=== PATIENT | female | born 1940 | race Caucasian/White ===

== ENCOUNTER 2018-03-17 16:35 | Inpatient (IN) | payer MEDICARE, OTHER ==
[2018-03-17] MEDS: CEFTRIAXONE 1 GM/50 ML (PMX) 50 ML IVPB (19:15)
[2018-03-17] MEDS: SODIUM CHLORIDE 0.9% 1L BAG IV* (19:15)
[2018-03-17 19:27] LABS: ADD MAN DIFF? NO
[2018-03-17 19:28] LABS: BASOPHILS % 0.4 % (0.0-2.0); EOSINOPHILS % 0.1 % (0.0-7.0); HEMATOCRIT 36.2 % (37.0-47.0); HEMOGLOBIN 12.4 g/dl (12.0-16.0); LYMPHOCYTES # 1.7 10^3/ul (0.8-2.9); MEAN CORPUSCULAR HEMOGLOBIN 31.9 pg (29.0-33.0); MEAN CORPUSCULAR HGB CONC 34.3 g/dl (32.0-37.0); MEAN CORPUSCULAR VOLUME 93.1 fl (82.0-101.0); MONOCYTES % 10.4 % (0.0-11.0); NEUTROPHIL # 7.2 10^3/ul (1.6-7.5); NEUTROPHILS % 71.8 % (39.0-77.0); PLATELET COUNT 206 10^3/UL (140-415); RED BLOOD COUNT 3.89 10^6/ul (4.20-5.40); RED CELL DISTRIBUTION WIDTH 12.4 % (11.5-14.5)
[2018-03-17 19:47] LABS: INR 1.09; PROTIME 14.2 Sec (11.9-14.9); PT RATIO 1.1
[2018-03-17 19:48] LABS: PARTIAL THROMBOPLASTIN TIME 33.4 Sec (25.0-35.0)
[2018-03-17 19:50] LABS: ADD UMIC YES; ALANINE AMINOTRANSFERASE 54 IU/L (13-69); ALBUMIN 4.3 g/dl (3.3-4.9); ALBUMIN/GLOBULIN RATIO 1.19; ALKALINE PHOSPHATASE 59 IU/L (42-121); ANION GAP 20 (8-16); ASPARTATE AMINO TRANSFERASE 25 IU/L (15-46); BILIRUBIN,INDIRECT 0.3 mg/dl (0-1.1); BILIRUBIN,TOTAL 0.3 mg/dl (0.2-1.3); BLOOD UREA NITROGEN 15 mg/dl (7-20); CALCIUM 9.4 mg/dl (8.4-10.2); CARBON DIOXIDE 26 mmol/L (21-31); CHLORIDE 98 mmol/L (97-110); CREATININE 0.65 mg/dl (0.44-1.00); GLUCOSE 311 mg/dl (70-220); LIPASE 41 U/L (23-300); POTASSIUM 4.2 mmol/L (3.5-5.1); SODIUM 140 mmol/L (135-144); TOTAL PROTEIN 7.9 g/dl (6.1-8.1); UR ASCORBIC ACID NEGATIVE (NEGATIVE); UR BACTERIA FEW /HPF (NONE SEEN); UR BILIRUBIN (Dip) NEGATIVE (NEGATIVE); UR BLOOD (Dip) 1+ mg/dL (NEGATIVE); UR CLARITY SLIGHTLY CLOUDY (CLEAR); UR COLOR YELLOW (YELLOW); UR GLUCOSE (Dip) 3+ mg/dL (NEGATIVE); UR KETONES (Dip) TRACE mg/dL (NEGATIVE); UR LEUKOCYTE ESTERASE (Dip) 2+ Leu/ul (NEGATIVE); UR MUCUS FEW /HPF (NONE SEEN); UR NITRITE (Dip) NEGATIVE (NEGATIVE); UR RBC 14 /HPF (0-5); UR SPECIFIC GRAVITY (Dip) 1.035 (1.003-1.030); UR SQUAMOUS EPITHELIAL CELL MODERATE /HPF (FEW); UR TOTAL PROTEIN (Dip) 2+ mg/dl (NEGATIVE); UR UROBILINOGEN (Dip) 2+ mg/dL (NEGATIVE); UR WBC 58 /HPF (0-5)
[2018-03-17 19:50] LABS: LACTIC ACID 2.2 mmol/L (0.5-2.0)
[2018-03-17 20:07] LABS: TROPONIN-I < 0.012 ng/ml (0.00-0.12)
[2018-03-17] MEDS ORDERED: NACL 0.9% 3 ML SYG IV (20:30)
[2018-03-17] MEDS ORDERED: GLUCOSE GEL 15 GRAM TUBE BUCCAL (21:00)
[2018-03-17] MEDS ORDERED: GLUCOSE GEL 15 GRAM TUBE PO ×2 (21:00)
[2018-03-17] MEDS ORDERED: DEXTROSE 50% 50 ML SYRINGE IV ×2 (21:00)
[2018-03-17] MEDS ORDERED: GLUCAGON 1 MG INJ IM (21:00)
[2018-03-17 21:31] LABS: LACTIC ACID 1.4 mmol/L (0.5-2.0)
[2018-03-17] MEDS: SOD CHLORIDE 0.9% 1,000 ML IV (21:38)
[2018-03-17] MEDS: ATORVASTATIN 10 MG TAB PO (21:44)
[2018-03-17] MEDS: PANTOPRAZOLE (EC) 40 MG TAB PO (21:45)
[2018-03-17] MEDS: INSULIN ASPART [NOVOLOG] 3 ML PEN SC (22:37)
[2018-03-17] MEDS ORDERED: MECLIZINE 25 MG TAB PO (23:00)
[2018-03-17] MEDS: VALSARTAN 80 MG TAB PO (23:46)
[2018-03-17] MEDS: ONDANSETRON 4 MG INJ IV (23:48)
[2018-03-18 00:42] LABS: LACTIC ACID 1.7 mmol/L (0.5-2.0)
[2018-03-18] MEDS: ACETAMINOPHEN 325 MG TAB PO ×3 (01:57→20:53)
[2018-03-18] MEDS: ACCU-CHEK XX (01:57)
[2018-03-18] MEDS: SOD CHLORIDE 0.9% 1,000 ML IV (03:44)
[2018-03-18] MEDS: PANTOPRAZOLE (EC) 40 MG TAB PO (05:27)
[2018-03-18 05:51] LABS: ADD MAN DIFF? NO
[2018-03-18 05:57] LABS: WHITE BLOOD COUNT 9.1 10^3/ul (4.8-10.8)
[2018-03-18 05:57] LABS: BASOPHILS % 0.3 % (0.0-2.0); EOSINOPHILS % 0.1 % (0.0-7.0); HEMATOCRIT 32.4 % (37.0-47.0); HEMOGLOBIN 10.9 g/dl (12.0-16.0); LYMPHOCYTES # 2.1 10^3/ul (0.8-2.9); LYMPHOCYTES % 23.2 % (15.0-51.0); MEAN CORPUSCULAR HEMOGLOBIN 31.3 pg (29.0-33.0); MEAN CORPUSCULAR HGB CONC 33.6 g/dl (32.0-37.0); MEAN CORPUSCULAR VOLUME 93.1 fl (82.0-101.0); MONOCYTE # 1.1 10^3/ul (0.3-0.9); MONOCYTES % 11.6 % (0.0-11.0); NEUTROPHIL # 5.9 10^3/ul (1.6-7.5); NEUTROPHILS % 64.6 % (39.0-77.0); PLATELET COUNT 190 10^3/UL (140-415); RED BLOOD COUNT 3.48 10^6/ul (4.20-5.40); RED CELL DISTRIBUTION WIDTH 12.5 % (11.5-14.5)
[2018-03-18 06:20] LABS: ALANINE AMINOTRANSFERASE 46 IU/L (13-69); ALBUMIN 3.2 g/dl (3.3-4.9); ALBUMIN/GLOBULIN RATIO 1.06; ALKALINE PHOSPHATASE 45 IU/L (42-121); ANION GAP 11 (8-16); ASPARTATE AMINO TRANSFERASE 22 IU/L (15-46); BILIRUBIN,INDIRECT 0.2 mg/dl (0-1.1); BILIRUBIN,TOTAL 0.2 mg/dl (0.2-1.3); BLOOD UREA NITROGEN 9 mg/dl (7-20); CALCIUM 8.2 mg/dl (8.4-10.2); CARBON DIOXIDE 27 mmol/L (21-31); CHLORIDE 107 mmol/L (97-110); CHOL/HDL RATIO 4.5 RATIO; CHOLESTEROL 117 mg/dl (100-200); CREATININE 0.61 mg/dl (0.44-1.00); GLUCOSE 237 mg/dl (70-220); HDL CHOLESTEROL 26 mg/dl (33-92); LDL CHOLESTEROL,CALCULATED 64 mg/dl; MAGNESIUM 1.8 mg/dl (1.7-2.5); POTASSIUM 4.2 mmol/L (3.5-5.1); SODIUM 141 mmol/L (135-144); TOTAL PROTEIN 6.2 g/dl (6.1-8.1); TRIGLYCERIDES 134 mg/dl (0-149)
[2018-03-18 06:46] LABS: THYROID STIMULATING HORMONE 0.484 MIU/L (0.465-4.680)
[2018-03-18] MEDS: INSULIN ASPART [NOVOLOG] 3 ML PEN SC ×4 (08:19→20:56)
[2018-03-18] MEDS: PREGABALIN 75 MG CAP PO (09:03)
[2018-03-18] MEDS: TOLTERODINE (SR) 4 MG CAP PO (09:03)
[2018-03-18] MEDS: ASPIRIN (EC) 81 MG TAB PO (09:03)
[2018-03-18] MEDS: METOPROLOL (XL) 25 MG TAB PO (09:04)
[2018-03-18] MEDS: VALSARTAN 80 MG TAB PO (09:05)
[2018-03-18] MEDS: CEFTRIAXONE 1 GM/50 ML (PMX) 50 ML IVPB (19:54)
[2018-03-18] MEDS: ATORVASTATIN 10 MG TAB PO (20:53)
[2018-03-19] MEDS: ACCU-CHEK XX (02:17)
[2018-03-19] MEDS: PANTOPRAZOLE (EC) 40 MG TAB PO (05:50)
[2018-03-19] MEDS: ACETAMINOPHEN 325 MG TAB PO ×2 (05:50→12:13)
[2018-03-19] MEDS: INSULIN ASPART [NOVOLOG] 3 ML PEN SC ×4 (07:54→21:00)
[2018-03-19] MEDS: VALSARTAN 80 MG TAB PO (08:42)
[2018-03-19] MEDS: ASPIRIN (EC) 81 MG TAB PO (08:42)
[2018-03-19] MEDS: TOLTERODINE (SR) 4 MG CAP PO (08:43)
[2018-03-19] MEDS: PREGABALIN 75 MG CAP PO (08:43)
[2018-03-19] MEDS: METOPROLOL (XL) 25 MG TAB PO (08:45)
[2018-03-19 19:13] LABS: ADD UMIC YES; UR ASCORBIC ACID NEGATIVE (NEGATIVE); UR BACTERIA FEW /HPF (NONE SEEN); UR BILIRUBIN (Dip) NEGATIVE (NEGATIVE); UR BLOOD (Dip) 2+ mg/dL (NEGATIVE); UR CLARITY CLEAR (CLEAR); UR COLOR YELLOW (YELLOW); UR GLUCOSE (Dip) 1+ mg/dL (NEGATIVE); UR KETONES (Dip) TRACE mg/dL (NEGATIVE); UR LEUKOCYTE ESTERASE (Dip) 1+ Leu/ul (NEGATIVE); UR MUCUS FEW /HPF (NONE SEEN); UR NITRITE (Dip) NEGATIVE (NEGATIVE); UR RBC 12 /HPF (0-5); UR SPECIFIC GRAVITY (Dip) 1.014 (1.003-1.030); UR SQUAMOUS EPITHELIAL CELL FEW /HPF (FEW); UR TOTAL PROTEIN (Dip) 1+ mg/dl (NEGATIVE); UR UROBILINOGEN (Dip) 1+ mg/dL (NEGATIVE); UR WBC 52 /HPF (0-5)
[2018-03-19] MEDS: ATORVASTATIN 10 MG TAB PO (21:52)
[2018-03-20] MEDS: ACCU-CHEK XX (01:51)
[2018-03-20] MEDS: PANTOPRAZOLE (EC) 40 MG TAB PO (05:24)
[2018-03-20 06:32] LABS: ADD MAN DIFF? NO
[2018-03-20 06:38] LABS: BASOPHILS % 0.4 % (0.0-2.0); EOSINOPHILS # 0.1 10^3/ul (0.0-0.5); EOSINOPHILS % 0.6 % (0.0-7.0); HEMATOCRIT 36.6 % (37.0-47.0); HEMOGLOBIN 12.1 g/dl (12.0-16.0); LYMPHOCYTES # 1.9 10^3/ul (0.8-2.9); LYMPHOCYTES % 18.8 % (15.0-51.0); MEAN CORPUSCULAR HGB CONC 33.1 g/dl (32.0-37.0); MEAN CORPUSCULAR VOLUME 93.8 fl (82.0-101.0); MEAN PLATELET VOLUME 9.9 fl (7.4-10.4); MONOCYTE # 1.2 10^3/ul (0.3-0.9); MONOCYTES % 11.2 % (0.0-11.0); NEUTROPHILS % 68.5 % (39.0-77.0); PLATELET COUNT 242 10^3/UL (140-415); RED CELL DISTRIBUTION WIDTH 12.5 % (11.5-14.5)
[2018-03-20 06:38] LABS: WHITE BLOOD COUNT 10.2 10^3/ul (4.8-10.8)
[2018-03-20 07:06] LABS: ANION GAP 14 (8-16); BLOOD UREA NITROGEN 12 mg/dl (7-20); CALCIUM 8.9 mg/dl (8.4-10.2); CARBON DIOXIDE 29 mmol/L (21-31); CHLORIDE 104 mmol/L (97-110); CREATININE 0.67 mg/dl (0.44-1.00); GLUCOSE 171 mg/dl (70-220); MAGNESIUM 2.1 mg/dl (1.7-2.5); PHOSPHORUS 3.1 mg/dl (2.5-4.9); POTASSIUM 4.3 mmol/L (3.5-5.1); SODIUM 143 mmol/L (135-144)
[2018-03-20] MEDS: TOLTERODINE (SR) 4 MG CAP PO (08:11)
[2018-03-20] MEDS: PREGABALIN 75 MG CAP PO (08:11)
[2018-03-20] MEDS: INSULIN ASPART [NOVOLOG] 3 ML PEN SC ×2 (08:11→12:00)
[2018-03-20] MEDS: VALSARTAN 80 MG TAB PO (08:12)
[2018-03-20] MEDS: METOPROLOL (XL) 25 MG TAB PO (08:12)
[2018-03-20] MEDS: ASPIRIN (EC) 81 MG TAB PO (08:12)
[2018-03-20] MEDS: ACETAMINOPHEN 325 MG TAB PO (10:11)
== END 2018-03-20 17:05 | disposition home or self-care (01) | DRG 864 ==
LOC: E/R 16:35 → MS2 20:01
DX: R50.9 Fever, unspecified (principal); R31.9 Hematuria, unspecified; E11.9 Type 2 diabetes mellitus without complications; I10 Essential (primary) hypertension; E03.9 Hypothyroidism, unspecified; E78.5 Hyperlipidemia, unspecified; N32.81 Overactive bladder; K21.9 Gastro-esophageal reflux disease without esophagitis; Z79.82 Long term (current) use of aspirin; Z79.84 Long term (current) use of oral hypoglycemic drugs; Z96.641 Presence of right artificial hip joint; E66.9 Obesity, unspecified
CPT/HCPCS: 36415; 71045; 71046; 80048; 80053; 80061; 81001; 82962; 83036; 83605; 83690; 83735; 84100; 84443; 84484; 85025; 85610; 85730; 87040; 87086; 93005; 96365; 96366; 97161; 99291-25